=== PATIENT | female | born 1960 | race Caucasian/White ===

== ENCOUNTER → 2016-11-30 | Outpatient (REF) | LOC: ZLAB.WCH 12:45 | DX: Z01.89 Encounter for other specified special examinations (principal) ==

== ENCOUNTER → 2018-03-25 | Outpatient (REF) ==
[2018-03-25 15:14] LABS: THYROID STIMULATING HORMONE 1.69 uIU/mL (0.465-4.680)
== END ==
LOC: ZLAB.WCH 14:18
PROVIDERS: Nurse Practitioner Family
DX: Z01.89 Encounter for other specified special examinations (principal)